=== PATIENT | female | born 1995 ===

== ENCOUNTER 2022-11-02 22:07 | Emergency (ER) | payer SELFPAY ==
[2022-11-02 22:12] VITALS: BP 138/96; PULSE 148; RESP 18; TEMP 39.5; O2SAT 100; BMI 34.2
--- NOTE | 2022-11-02 22:26 | ED.EAR1 ---
HPI - Ear Problem General Chief complaint: Ear Stated complaint: EARACHE, BILATERAL Time Seen by Provider: 11/02/22 22:22 Source: patient Mode of arrival: walk-in History of Present Illness HPI Narrative: right ear pain yesterday. Seen at Urgent care and prescribed ear drops. Today has pain both ears and fever. Also has frontal headache. No nausea or dizziness. Ear sounds are muffled like she is under water Related Data Allergies Allergy/AdvReac Type Severity Reaction Status Date / Time No Known Drug Allergies Allergy Verified 11/02/22 22:16 Review of Systems ROS Status of ROS 10 or more systems reviewed and unremarkable except as noted in history and below PFSH PFS Social History Smoking status: Never smoker Exam Constitutional Vital Signs, click to edit/add: Last Vital Signs Temp 103.1 F H 11/02/22 22:12 Pulse 148 H 11/02/22 22:12 Resp 18 11/02/22 22:12 BP 138/96 H 11/02/22 22:12 Pulse Ox 100 11/02/22 22:12 O2 Del Method Room Air 11/02/22 22:12 Common normals: no apparent distress, oriented x3, healthy appearing and alert HENMT Common normals: normocephalic and head/scalp atraumatic Other: right ear canal narrow. Not able to see beyond entry. left ear canal narrow also but not as much as the right. Still not able to visualize TM white exudative material bilat ear canals. R>L Eye Common normals: PERRL, EOMs intact bilaterally and conjunctivae normal Respiratory Common normals: normal respiratory effort, no retractions, no use of accessory muscles and clear to auscultation bilaterally Cardio Common normals: regular rate, regular rhythm, S1 normal heart sound and S2 normal heart sound GI Common normals: Normal to inspection, nondistended, normoactive bowel sounds present, soft to palpation and non-tender Extremity Common normals: normal to inspection and full ROM Neuro Common normals: oriented x3, CN's II-XII intact bilaterally, moves all extremities, no focal motor deficits and no sensory deficits noted Psych Appearance: grossly normal Course Vital Signs Vital signs: Vital Signs Temperature 103.1 F H 11/02/22 22:12 Pulse Rate 148 H 11/02/22 22:12 Respiratory Rate 18 11/02/22 22:12 Blood Pressure 138/96 H 08/21/23 22:12 Pulse Oximetry 100 11/02/22 22:12 Oxygen Delivery Method Room Air 11/02/22 22:12 Temperature 103.1 F H 11/02/22 22:12 Pulse Rate 148 H 11/02/22 22:12 Respiratory Rate 18 11/02/22 22:12 Blood Pressure 138/96 H 11/02/22 22:12 Pulse Oximetry 100 11/02/22 22:12 Oxygen Delivery Method Room Air 11/02/22 22:12 Medical Decision Making MDM Narrative Medical decision making narrative: patient presents with infection of bilat ear canals with associated narrowing and increasing pain of her ears and a headache. CT brain neg for acute findings. mild elevated WBC and mild hypokalemia. Medicated with solumedrol, Rocephin and potassium in the department. By the time of discharge the pressure in her ears was decreasing and she was feeling better Discharge Plan Discharge Chief Complaint: Ear Clinical Impression: Otitis externa Instructions: Ear Infection (ED) Additional Instructions: follow up with your doctor in a couple of days for recheck Stand Alone Forms: Portal Instructions Referrals: Physician,Non-Staff, MD [Primary Care Provider] - 1 week
[2022-11-02] MEDS: METHYLPREDNISOLONE SOD SUCC PF 125 MG/2 ML VIAL IVP (22:44)
[2022-11-02] MEDS: CEFTRIAXONE 2,000 MG in 0.9 % SODIUM CHLORIDE 100 ML 200 MG IV (22:45)
[2022-11-02] MEDS: 0.9 % SODIUM CHLORIDE 1,000 ML 999 ML IV (22:46)
--- NOTE | 2022-11-02 22:50 | CT_ITS ---
The [address] [address] Patient Name: IVÁN KOLB MRN: [facility]:[id number] date: 1995 Sex: F Assigned Patient Location: ER Current Patient Location: ER Accession/Order Number: [id number] Exam Date: 11/02/2022 22:50 Report Date: 11/02/2022 23:26 At the request of: ESTELA WILKINS Procedure: CT head/brain wo con EXAM: CT head/brain wo con HISTORY: headache COMPARISON: None. TECHNIQUE: Axial CT scans through the head were obtained without IV contrast administration. Dose reduction techniques were achieved by using: automated exposure control and/or adjustment of mA and /or kV according to patient size and/or use of iterative reconstruction technique. FINDINGS: There is no acute intracranial hemorrhage or abnormal extra-axial fluid collection. No mass effect or midline shift is seen. There is no evidence of large acute territorial infarction. There is no hydrocephalus. To the limit of CT, the posterior fossa appears unremarkable. The calvaria and extra cranial soft tissues are unremarkable. The visualized orbits show no abnormal mass. The visualized paranasal sinuses show no air-fluid level. Mastoid air cells are clear. CT/CT head/brain wo con IMPRESSION: No acute intracranial process. Electronically authenticated by: CAMPOS PATRICK Date: 11/02/2022 23:26
[2022-11-02 23:17] LABS: Basophils Absolute Auto 0.1 10^3/uL (0.0-0.1); Basophils Percent Auto 0.4 % (0.2-2.0); Eosinophils Percent Auto 0.2 % (0.9-7.0); Hematocrit 39.3 % (36.0-48.0); Immature Granulocytes Abs Auto 0.05 10^3/uL (0.00-0.03); Immature Granulocytes Pct Auto 0.4 % (0.0-0.5); Lymphocytes Absolute Auto 1.4 10^3/uL (1.2-3.8); Mean Corpuscular HGB Conc 33.1 g/dL (29.9-35.2); Mean Corpuscular Volume 87.5 fL (81.0-99.0); Mean Platelet Volume 9.5 fL (9.5-13.5); Monocytes Absolute Auto 1.2 10^3/uL (0.3-0.8); Monocytes Percent Auto 9.9 % (1.7-12.0); Neutrophils Absolute Auto 9.7 10^3/uL (1.4-6.5); Neutrophils Percent Auto 78.1 % (43.0-75.0); Platelet Count 279 10^3/uL (150-450); Red Blood Count 4.49 10^6/uL (4.20-5.40); Red Cell Distribution Width 12.2 % (11.0-15.0); White Blood Count 12.4 10^3/uL (4.0-11.0)
[2022-11-02 23:22] LABS: Anion Gap 14.3; BUN Creatinine Ratio 11.4; Calcium 8.8 mg/dL (8.5-10.1); Chloride 100 mmol/L (98-107); Estimated GFR (African America >60 (>=60); Estimated GFR (Non-African Ame >60 (>=60); Glucose 107 mg/dL (74-106); Potassium 3.3 mmol/L (3.5-5.1); Sodium 135 mmol/L (136-145)
[2022-11-02 23:31] LABS: Lactate/Lactic Acid 0.8 mmol/L (0.4-2.0)
[2022-11-03] MEDS: KETOROLAC TROMETHAMINE 30 MG/ML VIAL IVP
[2022-11-03 00:03] VITALS: BP 133/77; PULSE 115; RESP 16; TEMP 38.4; O2SAT 96
[2022-11-03] MEDS: POTASSIUM CHLORIDE 10 MEQ ER TABLET 40 MEQ PO (00:31)
== END 2022-11-03 00:52 | disposition home or self-care (01) ==
PROVIDERS: Emergency Provider Internal Medicine
DX: H60.93 Unspecified otitis externa, bilateral (principal); E87.6 Hypokalemia
CPT/HCPCS: 36415; 70450; 80048; 83605; 85025; 96365; 96366; 96375; 99285; J2930